=== PATIENT | male | born 2000 | race Caucasian/White ===

== ENCOUNTER 2022-05-05 11:34 | Outpatient (REF) | payer BC, SELFPAY ==
--- NOTE | ~2022-05-05 | XR_ITS ---
EXAMINATION: XR SACRUM AND COCCYX CLINICAL INFORMATION: Sacrococcygeal disorder. COMPARISON: None TECHNIQUE: 2 views of the sacrum and 2 views of the coccyx were obtained. FINDINGS: The SI joints are symmetrical. Visualized sacrum is unremarkable. No soft tissue mass seen. No bony erosive changes. XR/XR sacrum coccyx min 2V IMPRESSION: Unremarkable sacrum, coccyx and SI joint.
[2022-05-05 14:01] LABS: Alanine Aminotransferase 14 U/L (0-40); Albumin Level 5.3 g/dL (3.5-5.0); Alkaline Phosphatase 54 U/L (39-117); Anion Gap 14 (12-20); Aspartate Amino Transferase 20 U/L (5-37); Bilirubin Total 1.3 mg/dL (0.0-1.0); Blood Urea Nitrogen 7 mg/dL (9-16); Carbon Dioxide 28 mmol/L (22-29); Chloride 101 mmol/L (96-108); Cholesterol 145 mg/dL; Estimated Glomerular Filt Rate > 60; Glucose Fasting 97 mg/dL (60-99); HDL Cholesterol 55 mg/dL; LDL Cholesterol Calculated 79 mg/dl; Potassium 4.3 mmol/L (3.3-5.1); Sodium 139 mmol/L (135-145); Total Protein 8.1 g/dL (6.5-8.0); Triglycerides 59 mg/dL
[2022-05-05 14:35] LABS: TSH reflex Free T4 1.63 uIU/mL (0.32-4.0)
[2022-05-06 08:23] LABS: Syphilis Screen Nonreactive (Nonreactive)
[2022-05-06 08:25] LABS: HBS Num1 1.53 mIU/mL (0-7.99); HBc Num1 0.07 S/CO (0.00-0.79); HBsAGNum1 0.23 S/CO (0.00-0.99); HIV AB/AG Nonreactive (Nonreactive); HIV Num 1 0.68 S/CO (0.00-0.99); Hepatitis B Core Antibody Nonreactive (Nonreactive); Hepatitis B Surface Antigen Negative (Negative); ~HepC Num1 0.08 S/CO (0.00-0.79); ~Hepatitis B Surface Antibody NONREACTIVE (Nonreactive); ~Hepatitis C Antibody Nonreactive (Nonreactive)
== END 2022-05-05 11:35 | disposition home or self-care (01) ==
LOC: HO.LAB 11:34
PROVIDERS: Visit Provider Family Medicine
DX: Z00.00 Encounter for general adult medical examination without abnormal findings (principal); Z11.3 Encounter for screening for infections with a predominantly sexual mode of transmission; Z11.4 Encounter for screening for human immunodeficiency virus [HIV]; M53.3 Sacrococcygeal disorders, not elsewhere classified
CPT/HCPCS: 36415; 72220; 80053; 80061; 84443; 86704; 86706; 86780; 86803; 87340; 87389